=== PATIENT | female | born 1960 | race Caucasian/White ===

== ENCOUNTER → 2020-12-14 | Outpatient (CLI) | payer OTHER | LOC: KOH-I 16:38 | DX: M54.9 Dorsalgia, unspecified (principal); M25.50 Pain in unspecified joint; M19.011 Primary osteoarthritis, right shoulder; M19.012 Primary osteoarthritis, left shoulder; M47.817 Spondylosis without myelopathy or radiculopathy, lumbosacral region | CPT/HCPCS: 72110; 73030 ==